=== PATIENT | female | born 1990 | race Native Hawaiian/Other Pacific Islander ===

== ENCOUNTER 2016-09-30 11:35 | Inpatient (IN) | payer OTHER ==
--- NOTE | 2016-09-30 13:02 | OBPN ---
Datetime: 09/30/2016 12:57 IP Progress Impression: Reassuring heart rate IP Procedures: Sterile Vag Exam IP Progress Plan: Cervical Ripening Contraction Comments Provider: occ Gestation - Est Wks by US: 39.2 Weight - Estimated: 3200 Presentation-Admit: Vertex IP Progress Note Comment: asked by dr recio to place cervidil for ripening fht reactive toco occ ctx sve ft/50/-3; vertex; efw 3200grams; adequate pelvis cevridil placed plan-continue to monitor closely -management as per dr recio Vital Signs Provider: Reviewed; Within Normal Limits FHR Category Provider Fetus A: Category I Dilatation, Provider: ft Effacement, Provider: 50 Station, Provider: -3
[2016-09-30] MEDS ORDERED: Penicillin G 5 Million Unit Vial IVPB ONE ×2 (13:15→13:50)
[2016-09-30 13:42] LABS: BASO % 0.3 % (0.0-2.0); EOS # 0.1 K/uL (0.0-0.7); EOS % 0.5 % (0.0-4.0); HEMATOCRIT 35.3 % (34.0-47.0); LYMPH # 2.1 K/uL (1.0-4.3); LYMPH % 18.8 % (20.0-40.0); MEAN CELL VOLUME 91.2 fL (81.0-99.0); MEAN CORPUSCULAR HEMOGLOBIN 31.9 pg (27.0-31.0); MEAN PLATELET VOLUME 10.5 fL (7.2-11.7); MONO # 0.8 K/uL (0.0-0.8); RED CELL DISTRIBUTION WIDTH 14.2 % (11.5-14.5); WHITE BLOOD COUNT 11.3 K/uL (4.8-10.8)
[2016-09-30 13:49] LABS: CHLORIDE 101 mmol/L (98-107)
[2016-09-30 13:50] LABS: POTASSIUM 3.8 mmol/L (3.6-5.2); SODIUM 132 mmol/L (132-148)
[2016-09-30 13:52] LABS: AST/SGOT 19 U/L (14-36); BILIRUBIN,TOTAL 0.6 mg/dL (0.2-1.3); CARBON DIOXIDE 22 mmol/L (22-30); GFR AFRICAN-AMERICAN > 60; TOTAL PROTEIN 6.7 g/dL (6.3-8.3)
[2016-09-30 13:53] LABS: ALKALINE PHOSPHATASE 132 U/L (38-126); ALT/SGPT 23 U/L (9-52); BLOOD UREA NITROGEN 7 mg/dL (7-17); CALCIUM 9.1 mg/dl (8.6-10.4); GLUCOSE,RANDOM 73 mg/dL (65-105)
[2016-09-30 13:55] LABS: RBC URINE 2 /hpf (0-3); URINE BILIRUBIN NEGATIVE (NEGATIVE); URINE BLOOD NEGATIVE (NEGATIVE); URINE COLOR Yellow (YELLOW); URINE GLUCOSE (UA) NORMAL (Normal); URINE KETONE NEGATIVE (NEGATIVE); URINE LEUKOCYTE ESTERASE 3+ Leu/uL (Negative); URINE PROTEIN NEGATIVE (NEGATIVE); WBC URINE 11 /hpf (0-5)
--- NOTE | 2016-09-30 17:18 | OBADHP ---
Datetime: 09/30/2016 12:57 Weight - Estimated: 3200 Presentation-Admit: Vertex Contraction Comments Provider: occ Gestation - Est Wks by US: 39.2 Vital Signs Provider: Reviewed; Within Normal Limits FHR Category Provider Fetus A: Category I Dilatation, Provider: ft Effacement, Provider: 50 Station, Provider: -3 Datetime: 09/30/2016 12:01 Admit Comment, IP Provider: chief complaint- vaginal discharge HPI 26 y/o at 39.2 wga with c/o noticing greenish discharge and cramping Patient denies vaginal bleeding or loss of fluid course uncomplicated PMH denies PSH denies OBGYN HX Social hx denies tobacco,alcohol or illicit drug use Exam see exam section A/P 26 y/o at 39.2 wga with c/o cramping and vaginal discharge.no active labor -management as per dr recio -discussed with dr recio pt c/o of green discharge with clear fluid, increasign in frequency and amount, denies large gush, vb, +FM VE: small pooling, positive nitrazine EFM: Ct I Lindy irregular a/p @ 39.2 wks GA with PROM admit -admi to L+D -npo, ivf -cotn bony adn efm -cervidil Pelvic Type - PN: Adequate Extremities - PN: Normal Abdomen - PN: Normal Back - PN: Normal Lungs - PN: Normal Heart - PN: Normal Neurologic - PN: Normal General - PN: Normal FHR - Baseline A Provider: 135 Pool Provider: Positive IP Hx Assessment: The History has been Reviewed and is Current IP Chief Complaint: Uterine contractions; Suspected ruptured membranes NICHD Variability Prov Fetus A: Moderate 6-25bpm NICHD Decel Fetus A IP Provider: None Genitourinary Exam: Normal DTRs - PN: Normal EGA AdmitDate IP: 39.2 IP Adm Impression: Term, intrauterine IP Admit Plan: Admit to unit
[2016-09-30] MEDS ORDERED: Bupivacaine HCl 0.25% PF (10 ml) Inj ONE (20:43)
[2016-10-01] MEDS ORDERED: Oxytocin 30 UNIT 30 UNITS/500 ML BAG IV ONE (02:18)
[2016-10-01] MEDS ORDERED: Oxytocin 30 UNIT 30 UNITS/500 ML BAG IV SCH (06:30)
[2016-10-01] MEDS ORDERED: Bupivacaine 0.125%/FentaNYL 200 ML EPI ONE (07:19)
[2016-10-01] MEDS ORDERED: Bupivacaine HCl 0.25% PF (10 ml) Inj ONE (08:08)
--- NOTE | 2016-10-01 08:58 | OBPN ---
Datetime: 10/01/2016 08:56 IP Progress Impression: Normal progression of labor IP Informed Consent Obtain: Vaginal Delivery IP Progress Plan: Continue present management; Augmentation FHR - Baseline A Provider: 145 IP Progress Note Comment: pt seen and examined c/o of pressure, deies vb, +FM VSS EFM: cat I TOCO: irregular A/P @ 39.3 wks with PROM s/p cervidil -trujillo balloon inserted -cont current mangemtn -anesthesia consult Vital Signs Provider: Reviewed; Within Normal Limits FHR Category Provider Fetus A: Category I NICHD Variability Prov Fetus A: Moderate 6-25bpm Dilatation, Provider: 1 Effacement, Provider: 60 Station, Provider: -2 NICHD Decel Fetus A IP Provider: None Datetime: 09/30/2016 12:01 Pool Provider: Positive
--- NOTE | 2016-10-01 22:14 | OBPN ---
Datetime: 10/01/2016 22:11 IP Progress Impression: Reassuring heart rate IP Informed Consent Obtain: Vaginal Delivery IP Progress Plan: Continue present management IP Progress Note Comment: pt seen and examined reportin gpressure. denies vb, +FM, +LOF VE: 7cm uncahged IUPC insereted Pitocoin A/P @ 39.3 wks GA in active labor -d/ cpitocin -rest 1-2 hours -restart pitocin -cont current managemetn -pain mangemnt Dilatation, Provider: 7 Effacement, Provider: 80 Station, Provider: -2
[2016-10-02] MEDS ORDERED: Bupivacaine 0.125%/FentaNYL 200 ML EPI ONE (00:38)
[2016-10-02] MEDS ORDERED: Oxytocin 20 units in LR 2,000 ML IV ONE (07:48)
[2016-10-02] MEDS ORDERED: Sodium Citrate/Citric Acid 15 ml Sol PO ONE (08:00)
[2016-10-02] MEDS ORDERED: cefOXitin IV 2 gm in Dextrose 2 GM/50 ML BAG IVPB ONE (08:00)
--- NOTE | 2016-10-02 08:19 | OBPN ---
Datetime: 10/02/2016 08:09 IP Progress Impression: Arrest of dilatation/descent IP Informed Consent Obtain: Section Delivery IP Progress Plan: Deliver- Section IP Progress Note Comment: pt seen and examined with decelerations , unimproved wiht oxygen left late ra. pitocin d/c pt now with fever VS see above VE: 7cm A/P @ 39.4 wks failed IOL for oligohydraminios, with non reassuring heart tracing remot e for delivery r/b/a/ i of PLRTCS not liited ot blleeding, infection, injry to bowel or bladder d/w patiet 1. consent for PLTCS 2. npo, ivf 3. pre op antibiotics 4. cont toco and efm
[2016-10-02] MEDS ORDERED: ePHEDrine 50 mg/ml Inj ONE ×2 (08:20→08:21)
[2016-10-02] MEDS ORDERED: Lidocaine 2% MPF (5 ml) Inj ONE (08:47)
[2016-10-02] MEDS ORDERED: Oxytocin 10 Units/ml Inj ONE (08:54)
[2016-10-02] MEDS ORDERED: Midazolam 2 MG/2 ML VIAL ONE (08:57)
[2016-10-02] MEDS ORDERED: Propofol 10 mg/ml Inj (20 ML) ONE (08:57)
[2016-10-02] MEDS ORDERED: Ketamine 50 mg/ml Inj (10 ml) ONE (08:57)
[2016-10-02] MEDS ORDERED: Oxycodone/Acetaminophen 5/325 mg Tab PO PRN (09:00)
[2016-10-02] MEDS ORDERED: cefOXitin IV 1 gm in Dextrose 1 GM/50 ML BAG IVPB SCH (09:00)
--- NOTE | 2016-10-02 09:29 | PCM.SURG1 ---
Surgeon's Initial Post Op Note - Surgeon's Notes Surgeon: Lise Dent< Biofuels Engineering Manager: Jose Crane MD Type of Anesthesia: Spinal Pre-Operative Diagnosis: Arrest of dilation, non reassuring heart tracing remote from delivery Operative Findings: live female infnat , nuchal cord x 1 tight reduced, normal appearing uteurs, tubes and ovaries bilateraly. commercial loan underwriter present for delivery , ebl 800ml. Dr Jose Crane was shipping assistant and essential in gaining entry, retraction, exposure, holding bladder blade, helpign to delivery baby, closign all layers and obtainign hemostaiss. Post-Operative Diagnosis: same as above Operation Performed: Primary Low Transveres Cesearen section Specimen/Specimens Removed: placenta Estimated Blood Loss: EBL {In ML}: 800 Blood Products Given: N/A Drains Used: No Drains Post-Op Condition: Good Date of Surgery/Procedure: 10/02/16 Time of Surgery/Procedure: 08:30
--- NOTE | 2016-10-02 09:38 | OBDS ---
DELIVERY PERSONNEL Delivery Doctor: Loyd Dent MD Public Health Physician: Jillian Ag RN Anesthesiologist: Dr. Albert MATERNAL INFORMATION Delivery Anesthesia: Epidural Medications in Delivery: pitocin Maternal Complications: None Provider Comments: live female infant, agpsr 9,9 weight 6lb 7 ounces, ebls 800 ml, tool and die inspector pres ent at delivery, normal uteurs, tubes and ovaries bilaterally LABOR SUMMARY EDC: 10/05/2016 00:00 No. Babies in Womb: 1 Attempted: No Labor Anesthesia: Epidural LABOR INFORMATION Cervical Ripening Agents: Cervidil Group B Beta Strep: Positive MEMBRANES Membranes Rupture Method: Spontaneous Rupture of Membranes: 10/01/2016 13:18 Length of Rupture (hrs): 19.42 Amniotic Fluid Color: Clear Amniotic Fluid Amount: Small Amniotic Fluid Odor: Normal STAGES OF LABOR Stage 3 hrs: 0 Stage 3 min: 1 CSECTION DELIVERY Primary Indication: Arrest of Descent Secondary Indication: Failure of Descent CSection Urgency: Elective CSection Incidence: Primary Labor: Labor Elective: Elective CSection Incision: Lower Uterine Transverse BABY A INFORMATION Infant Delivery Date/Time: 10/02/2016 08:43 Method of Delivery: Born in Route : No : N/A Forceps: N/A Vacuum Extraction: N/A Shoulder Dystocia : No SHOULDER DYSTOCIA BABY A Infant Delivery Date/Time: 10/02/2016 08:43 PRESENTATION/POSITION BABY A Presentation: Cephalic Cephalic Presentation: Vertex Vertex Position: Left Occipital Anterior Breech Presentation: N/A PLACENTA INFORMATION BABY A Placenta Delivery Time : 10/02/2016 08:44 Placenta Method of Delivery: Manual Removal Placenta Status: Delivered SCORES BABY A Heart Rate 1 min: >100 bpm Resp Effort 1 min: Good Cry Reflex Irritability 1 min: Cough or Sneeze or Pulls Away Muscle Tone 1 min: Active Motion Color 1 min: Body [place], Extremities Blue SCORE 1 MIN: 9 Heart Rate 5 min: >100 bpm Resp Effort 5 min: Good Cry Reflex Irritability 5 min: Cough or Sneeze or Pulls Away Muscle Tone 5 min: Active Motion Color 5 min: Body [place], Extremities Blue SCORE 5 MIN: 9 INFANT INFORMATION BABY A Gestational Age at Delivery: 39.2 Gestational Status: Term Infant Outcome : Liveborn Condition : Stable Infant Sex: Female IDENTIFICATION/MEDS BABY A ID Band Number: [id number] Sensor Number: [id number] WEIGHT/LENGTH BABY A Infant Birthweight (gms): 2935 Weight (lb): 6 Infant Weight (oz): 7 Length Inches: 19.50 Length cms: 49.5 CORD INFORMATION BABY A No. Cord Vessels: 3 Nuchal Cord : Around Neck x1, Loose Infant Cord pH Baby Arterial: 7.08 Infant Cord pH Baby Venous: 7.13 Cord Blood Taken: Yes Infant Suction: Mouth; Nose ASSESSMENT BABY A Complications: None Physical Findings at Delivery: Within Normal Limits Infant Respirations: Appears Normal Harvest Contractor/ALS Called : Yes Care By: Dr. Naida Vale Transferred To: [facility]
--- NOTE | 2016-10-02 11:01 | OP ---
PROCEDURE DATE: 10/02/2016 SURGEON: Lise Dent MD. ECHO VASCULAR TECHNOLOGIST: Dr. Jose Crane. TYPE OF ANESTHESIA: Spinal. PREOPERATIVE DIAGNOSIS: Arrest of dilation, nonreassuring heart tracing remote from delivery. OPERATIVE FINDINGS: Live female , nuchal cord x 1 tight, reduced. Normal- appearing uterus, t ubes, and ovaries bilaterally. Radio Disc Jockey present for delivery. ESTIMATED BLOOD LOSS: [address] Jose Crane, the surgical corsetier was essential in gaining entry, retraction, exposure, holding the bladder blade, up until delivery of baby, closing all layers, and obtaining hemostasis. POSTOPERATIVE DIAGNOSIS: Arrest of dilation, nonreassuring heart tracing remote from delivery. OPERATION PERFORMED: Primary low transverse section. SPECIMEN REMOVED: Placenta. ESTIMATED BLOOD LOSS: 800 mL. BLOOD PRODUCTS: None. COMPLICATIONS: None. ____. The patient was taken to the operating room. Anesthesia was found to be adequate, she was pos itioned on the operating room in the dorsal supine position. The patient was prepped and draped in t he usual normal sterile fashion. The patient was given preoperative prophylactic antibiotics. A Pfa nnenstiel skin incision was made with a scalpel and carried down to the underlying fascia with the sc alpel. The fascia was incised in midline, and the incision was extended laterally with Bovie. The i nferior aspect of the fascial incision was grasped, elevated with Naila clamps, and the underlying r ectus muscles dissected off bluntly. Attention was then turned to the inferior aspect of the incision, which in similar fashion was grasp ed and elevated with Naila clamps, and the underlying rectus muscles were dissected off bluntly. Re ctus muscles were then bluntly in the midline. The peritoneum was identified, and a clear space entered bluntly. Incision was extended laterally and superiorly until there was good visualiza tion of the bladder. The lower end of the Aleks was then inserted, and the vesicouterine peritoneu m was incised with Metzenbaum scissors and extended laterally. The bladder flap was created digitall y. The lower end of the Aleks was then reinserted. Lower uterine segment was incised in a transve rse fashion, and the uterine incision was extended laterally bluntly. The surgeon's hand entered the uterine cavity. 's head was delivered atraumatically. There was a tight nuchal cord x 1 that was easily reduced followed by atraumatic spontaneous delivery of anterior and posterior shoulders, followed by delivery. Both oral and nasal passages of the baby were bulb-suctioned. Umbilical cord was clamped and cut, and the baby was handed off to waiting pediatricians. Umbilical cord blood and cord gases were collected and sent x 2. The placenta was then delivered manually. Uterus was exteri orized and cleared of all clots and debris. The uterine incision was repaired with 0 Vicryl in running continuous locked fashion. A second layer of same suture was used to close the uterus in a running imbricated manner. There were normal tubes and ovaries. The uterus was then returned to the abdomen. Pericolic gutters were cleared of all cl ots and debris. There was good hemostasis at the uterine incision site. The peritoneum was reapprox imated and closed with 2-0 chromic in a running continuous fashion. The rectus was reapproximated an d closed with 2-0 chromic in interrupted manner. The fascia was reapproximated and closed with 0 Dipak ryl in running continuous fashion. Subcutaneous space was closed with 2-0 plain in interrupted elena r. Skin was reapproximated and closed with 4-0 Monocryl in a running subcuticular fashion. At the end of the procedure, all needle, sponge, and instrument counts were correct x 2. The patient tolerated the procedure well and was transferred to recovery in stable condition. Lise Dent MD cc: [id number] TT: 10/02/2016 11:00:37 jn
[2016-10-02] MEDS ORDERED: Ampicillin 2 GM in Sodium Chloride 0.9% 100 ML IVPB ONE (13:00)
[2016-10-02] MEDS: AMPicillin 1 GM in Sodium Chloride 0.9% 100 ML IVPB SCH ×2 (17:18→23:03)
[2016-10-02] MEDS: Oxycodone/Acetaminophen 5/325 mg Tab PO PRN (21:09)
[2016-10-03] MEDS: Oxycodone/Acetaminophen 5/325 mg Tab PO PRN ×4 (04:56→22:44)
[2016-10-03] MEDS ORDERED: Bisacodyl 5mg EC Tab PO ONE (08:45)
[2016-10-03 08:50] LABS: HEMATOCRIT 32.2 % (34.0-47.0); MEAN CELL VOLUME 92.6 fL (81.0-99.0); MEAN CORPUSCULAR HEMOGLOBIN 32.1 pg (27.0-31.0); MEAN CORPUSCULAR HGB CONC 34.6 g/dL (33.0-37.0); RED CELL DISTRIBUTION WIDTH 14.4 % (11.5-14.5)
[2016-10-03 08:54] LABS: WHITE BLOOD COUNT 21.3 K/uL (4.8-10.8)
[2016-10-03 08:57] LABS: CHLORIDE 101 mmol/L (98-107); POTASSIUM 3.6 mmol/L (3.6-5.2); SODIUM 131 mmol/L (132-148)
[2016-10-03 09:00] LABS: GFR AFRICAN-AMERICAN > 60
[2016-10-03 09:01] LABS: BLOOD UREA NITROGEN 5 mg/dL (7-17); CALCIUM 7.9 mg/dl (8.6-10.4); CARBON DIOXIDE 20 mmol/L (22-30); GLUCOSE,RANDOM 112 mg/dL (65-105)
--- NOTE | 2016-10-03 21:12 | OBPPN ---
Datetime: 10/03/2016 08:07 PP Pain Prov: Within normal limits PP Nausea Prov: Denies PP Flatus Prov: Yes PP Breasts Prov: Normal PP Heart Prov: Normal PP Lungs Prov: Normal PP Abdomen/Uterus Prov: Normal PP Lochia Prov: Normal PP Vulva/Perineum Prov: Normal PP CVA Tenderness Prov: Normal PP Extremities Prov: Normal PP C/S Incision Prov: Normal PP Comments Phys Exam Prov: Abd: Soft, NT, BS- present Uterus- firm Incision: Clean and dry PP Impression Prov: Normal progression PP Plan Prov: Continue present management PP Progress Note Prov: S/p Section, Clinically Stable Plan: Continue care. Vital Signs Provider PP: Reviewed
[2016-10-04 08:10] LABS: BASO % 0.2 % (0.0-2.0); EOS # 0.1 K/uL (0.0-0.7); EOS % 0.5 % (0.0-4.0); HEMATOCRIT 30.5 % (34.0-47.0); LYMPH # 1.6 K/uL (1.0-4.3); MEAN CELL VOLUME 92.4 fL (81.0-99.0); MEAN CORPUSCULAR HEMOGLOBIN 31.9 pg (27.0-31.0); MEAN CORPUSCULAR HGB CONC 34.5 g/dL (33.0-37.0); MEAN PLATELET VOLUME 9.8 fL (7.2-11.7); MONO # 1.1 K/uL (0.0-0.8); MONO % 7.8 % (0.0-10.0); RED CELL DISTRIBUTION WIDTH 14.2 % (11.5-14.5); WHITE BLOOD COUNT 14.7 K/uL (4.8-10.8)
--- NOTE | 2016-10-04 23:25 | OBPPN ---
Datetime: 10/04/2016 07:41 PP Pain Prov: Within normal limits PP Nausea Prov: Denies PP Flatus Prov: Yes PP BM Prov: No PP Heart Prov: Normal PP Lungs Prov: Normal PP Abdomen/Uterus Prov: Normal PP Lochia Prov: Normal PP CVA Tenderness Prov: Normal PP Extremities Prov: Normal PP C/S Incision Prov: Normal PP Progress Prov: Normal PP Impression Prov: Normal progression PP Plan Prov: Continue present management PP Progress Note Prov: S-patient reports that her pain is well controlled. she denies nausea, vomiti ng, headache, chest pain, shortness of breath,numbness or tingling in hands and feet O-VSS AFebrile Fundus firm and below umbilcius Incision clean, dry and intact extremities no calf tenderness A/P Patient s/p csection pod 2 doing well.Herat rate in 100s.No fever in last 24 hours.wbc 7. 21.3k/ul.Patient s/p antibiotics now -encourage po fluid -follow up cbc results. -monitor closely Vital Signs Provider PP: Reviewed Vital Signs Provider Details PP: mild tachycardia noted.heart jamarcus in 100s
--- NOTE | 2016-10-05 07:57 | OBPPN ---
Datetime: 10/05/2016 07:52 PP Pain Prov: Within normal limits PP Nausea Prov: Denies PP Flatus Prov: Yes PP Breasts Prov: Normal PP Heart Prov: Normal PP Lungs Prov: Normal PP Abdomen/Uterus Prov: Normal PP Lochia Prov: Normal PP Vulva/Perineum Prov: Normal PP CVA Tenderness Prov: Normal PP Extremities Prov: Normal PP C/S Incision Prov: Normal PP Progress Prov: Normal PP Comments Phys Exam Prov: Abd: Soft, NT ,BS- present UT- Firm Incision: Clean and dry. PP Impression Prov: Normal progression PP Plan Prov: Discharge PP Progress Note Prov: S/P Delivery, POD #3 Clinically Stable. Plan: D/c Home. IP PP Procedures: None Vital Signs Provider PP: Reviewed
--- NOTE | 2016-10-05 07:58 | OBDCSUM ---
Datetime: 10/05/2016 07:55 Discharged to, Provider: Home Follow up at, Provider: Dr Dent Disch Instr Activity: Normal activity Disch Instr Diet: Regular Discharge Instructions, Provider: Routine instructions given Discharge Diagnosis, Provider: Term Delivered Discharge Time: 10/05/2016 07:56 Follow up in weeks, Provider: 6 Weeks Disch Referrals: None Contraception discussed, Prov: Yes Discharge Comment, Provider: S/P Uncomplicated Delivery, Clinically Stable. Discharge Diagnosis Prov Other: S/P Uncomplicated Delivery, Clinically Stable.
[2016-10-05 09:20] VITALS: BP 101/65; PULSE 85; RESP 18; TEMP 97.9; O2SAT 96
== END 2016-10-05 12:30 | disposition home or self-care (01) | DRG 765 ==
LOC: C.EROB 11:35 → C.4D 12:21 → C.4M 10-02 12:13
PROVIDERS: ADMIT Obstetrics & Gynecology; ATTEND Obstetrics & Gynecology
PROC: 10D00Z1 Extraction of Products of Conception, Low, Open Approach (ICD-10-PCS; principal; 2016-10-02)
DX: O76 Abnormality in fetal heart rate and rhythm complicating labor and delivery (principal); O75.2 Pyrexia during labor, not elsewhere classified; O42.02 Full-term premature rupture of membranes, onset of labor within 24 hours of rupture; O62.1 Secondary uterine inertia; O69.1XX0 Labor and delivery complicated by cord around neck, with compression, not applicable or unspecified; Z3A.39 39 weeks gestation of pregnancy; O99.824 Streptococcus B carrier state complicating childbirth; Z37.0 Single live birth